=== PATIENT | female | born 1985 | race Caucasian/White ===

== ENCOUNTER 2019-06-03 03:20 | Emergency (ER) | payer OTHER ==
[~2019-06-03] VITALS: Ht 162.6 cm; Wt 61.5 kg
[2019-06-03 03:25] VITALS: Ht 162.6 cm; Wt 61.5 kg
[2019-06-03] MEDS ORDERED: KETOROLAC 30 MG INJ IM STA (04:29)
[2019-06-03] MEDS ORDERED: LIDOCAINE 2% (MDV) 20 ML INJ INJ ONE (04:30)
[2019-06-03] MEDS ORDERED: ACET500C5 PO (04:32)
[2019-06-03] MEDS ORDERED: IBUP-1542 PO (04:32)
--- NOTE | 2019-06-03 04:37 | ERD ---
ER Documentation Chief Complaint Chief Complaint PT has red raised area to R ankle, pt shot up 3 hrs ago with heroine HPI 33-year-old female with no reported past medical history, active heroin and crystal meth abuse who presents with complaint of lateral aspect of right ankle pain, swelling, and erythema at injection site where she last injected heroin. States she has had previous history of abscesses and skin infections at drug injection sites. She otherwise denies fevers, chills, chest pain, shortness of breath, dyspnea, worsening anxiety, nausea, vomiting, abominal pain or any other concerning symptoms. At time of evaluation patient nontoxic-appearing answering all questions appropriately. ROS All systems reviewed and are negative except as per history of present illness. Medications Home Meds Active Scripts Sulfamethoxazole/Trimethoprim* (Bactrim Ds* Tablet) 1 Each Tablet, 1 TAB PO BID for 7 Days, #14 TAB Prov:JEUDINE,GETHO PA-C 06/03/19 Cephalexin* (Keflex*) 500 Mg Capsule, 500 MG PO QID for 7 Days, CAP Prov:JEUDINE,GETHO PA-C 06/03/19 Acetaminophen* (Tylophen*) 500 Mg Capsule, 1 CAP PO Q6H PRN for PAIN AND OR ELEVATED TEMP, #20 CAP Prov:JEUDINE,GETHO PA-C 06/03/19 Ibuprofen* (Motrin*) 600 Mg Tab, 600 MG PO Q6H PRN for PAIN AND OR ELEVATED TEMP, #30 TAB Prov:JEUDINE,GETHO PA-C 06/03/19 Allergies Allergies: Coded Allergies: No Known Allergy (Unverified , 06/03/19) PMhx/Soc Medical and Surgical Hx: pt denies Medical Hx History of Surgery: Yes (nose ) Hx Alcohol Use: No Hx Substance Use: Yes (heroin ) Hx Tobacco Use: Yes Smoking Status: Current every day smoker FmHx Family History: No diabetes, No coronary disease, No other Physical Exam Vitals Vital Signs Date Temp Pulse Resp B/P (MAP) Pulse Ox O2 O2 Flow FiO2 Time Delivery Rate 06/03/19 97.9 95 20 125/79 100 03:25 (94) Physical Exam Const: No acute distress Head: Atraumatic Eyes: Normal Conjunctiva ENT: Normal External Ears, Nose and Mouth. Neck: Full range of motion. No meningismus. Resp: Clear to auscultation bilaterally Cardio: Regular rate and rhythm, no murmurs Abd: Soft, non tender, non distended. Normal bowel sounds Skin: No petechiae or rashes Back: No midline or flank tenderness Ext: Right ankle with swelling, prominent erythema, warmth, area of fluctuance and induration to the lateral aspect of right ankle just below lateral malleolus, tender to touch Neur: Awake and alert Psych: Normal Mood and Affect Results 24 hrs Laboratory Tests Test 06/03/19 04:45 POC Beta HCG, Qualitative NEGATIVE Current Medications Medications Dose Sig/Loree Start Time Status Last (Trade) Ordered Route PRN Stop Time Admin Dose Reason Admin Lidocaine 20 ml ONCE ONCE 06/03/19 DC (Xylocaine INJ 04:30 2% (Mdv) 20 06/03/19 04:31 ml) Ketorolac 30 mg ONCE STAT 06/03/19 DC 06/03/19 Tromethamine IM 04:29 04:49 (Toradol) 06/03/19 04:31 Procedures/MDM 33-year-old active heroin abuse patient presents with what represents likely right ankle abscess at injection site of heroin. I have low suspicion for systemic infection given patient afebrile with normal triage vital signs. Incision and drainage performed area without complication. Will discharge patient with appropriate antibiotics. Instructions for return for wound check. Abscess Incision and Drainage with irrigation by me: Location: Lateral aspect of right ankle, near lateral malleolu Anesthesia: Local 1% Lidocaine Technique: Irrigated. Disrupted loculations w/ instrumentation, half centimeter incision Packing: None Complications: Neurovascularly intact post procedure 48 hour wound check. Scar minimization instructions given. DISPOSITION PLAN: We discussed follow up with the patient's primary care doctor within 24 to 48 hours. Patient counseled regarding my diagnostic impression and care plan. Prior to discharge all questions answered. Pt agrees with treatment plan and understands strict return precautions. Precautionary instructions provided including instructions to return to the ER if not improving or for any worsening or changing symptoms or concerns. Disclaimer: Inadvertent spelling and grammatical errors are likely due to EHR/dictation software use and do not reflect on the overall quality of patient care. Also, please note that the electronic time recorded on this note does not necessarily reflect the actual time of the patient encounter. Departure Diagnosis: Primary Impression: Abscess Condition: Stable Patient Instructions: Abscess, Incision And Drainage Referrals: [facility] YOU HAVE RECEIVED A MEDICAL SCREENING EXAM AND THE RESULTS INDICATE THAT YOU DO NOT HAVE A CONDITION THAT REQUIRES URGENT TREATMENT IN THE EMERGENCY DEPARTMENT. FURTHER EVALUATION AND TREATMENT OF YOUR CONDITION CAN WAIT UNTIL YOU ARE SEEN IN YOUR DOCTORS OFFICE WITHIN THE NEXT 1-2 DAYS. IT IS YOUR RESPONSIBILITY TO MAKE AN APPOINTMENT FOR FOLOW-UP CARE. IF YOU HAVE A PRIMARY DOCTOR --you should call your primary doctor and schedule an appointment IF YOU DO NOT HAVE A PRIMARY DOCTOR YOU CAN CALL OUR PHYSICIAN REFERRAL HOTLINE AT IF YOU CAN NOT AFFORD TO SEE A PHYSICIAN YOU CAN CHOSE FROM THE FOLLOWING [facility] [address] [facility]. [facility] [address] [facility] [facility] [address] [facility] [facility] [address] [facility]. [facility] [address] [facility]. [facility] [address] Additional Instructions: Call your primary care doctor TOMORROW for an appointment during the next 2-3 da ys.See the doctor sooner or return here if your condition worsens before your appointment time. Antibiotics as prescribed to completion. Return to emergency room as instructed for wound check. NABEEL SAUNDERS PA-C Jun 03, 2019 04:37
[2019-06-03] MEDS ORDERED: SULF1TAB31 PO (04:44)
[2019-06-03] MEDS ORDERED: CEPH-443 PO (04:44)
== END 2019-06-03 05:35 | disposition home or self-care (01) ==
LOC: FTE 03:20
DX: L02.415 Cutaneous abscess of right lower limb (principal); F17.210 Nicotine dependence, cigarettes, uncomplicated
CPT/HCPCS: 10060; 81025; 96372; J1885; Z7502; Z7610